=== PATIENT | female | born 1960 | race Caucasian/White ===

== ENCOUNTER 2018-07-12 16:35 | Outpatient (REF) | payer BC, SELFPAY ==
[2018-07-12 20:45] LABS: ALT 21 U/L (12-78); Anion Gap 9.8 mmol/L (3-11); BUN 22 mg/dL (7-18); CO2 26.2 mmol/L (21.0-32.0); CREATININE 0.87 mg/dL (0.55-1.02); Calcium 8.9 mg/dL (8.5-10.1); Chloride 102 mmol/L (98-107); Cholesterol 321 mg/dL (50-200); Glucose 87 mg/dL (70-100); HDL Cholesterol 77 mg/dL (40-60); LDL CHOLESTEROL 217 mg/dL (<100); Potassium 4.2 mmol/L (3.5-5.1); Sodium 138 mmol/L (136-145); Triglyceride 144 mg/dL (30-150)
[2018-07-12 20:56] LABS: Creatine Kinase 527 U/L (26-192)
== END 2018-07-12 16:55 ==
LOC: NCHCN 16:35
PROVIDERS: PCP Physician Assistant; Visit Provider Internal Medicine
DX: Z00.00 Encounter for general adult medical examination without abnormal findings (principal); E78.5 Hyperlipidemia, unspecified; F43.21 Adjustment disorder with depressed mood; I10 Essential (primary) hypertension
CPT/HCPCS: 80048; 80061; 82550; 83721; 84460

== ENCOUNTER 2019-11-14 20:18 | Outpatient (REF) | payer BC, SELFPAY ==
[2019-11-14 18:58] LABS: Anion Gap 9.2 mmol/L (3-11); BUN 23 mg/dL (7-18); CO2 26.8 mmol/L (21.0-32.0); CREATININE 0.83 mg/dL (0.55-1.02); Calcium 8.5 mg/dL (8.5-10.1); Chloride 101 mmol/L (98-107); Glucose 81 mg/dL (74-106); Potassium 3.9 mmol/L (3.5-5.1); Sodium 137 mmol/L (136-145)
== END 2019-11-14 20:38 ==
LOC: NCHCN 20:18
PROVIDERS: PCP Physician Assistant; Visit Provider Internal Medicine
DX: I10 Essential (primary) hypertension (principal); E66.9 Obesity, unspecified
CPT/HCPCS: 80048

== ENCOUNTER 2020-07-27 17:40 | Outpatient (REF) | payer BC, SELFPAY ==
[2020-07-27 18:56] LABS: Anion Gap 11.1 mmol/L (3-11); BUN 20 mg/dL (7-18); CO2 25.9 mmol/L (21.0-32.0); CREATININE 0.8 mg/dL (0.55-1.02); Calcium 8.6 mg/dL (8.5-10.1); Chloride 102 mmol/L (98-107); Glucose 84 mg/dL (74-106); LDL CHOLESTEROL 161 mg/dL (<100); Potassium 3.6 mmol/L (3.5-5.1); Sodium 139 mmol/L (136-145); TSH 2.76 uIU/mL (0.36-3.74)
== END 2020-07-27 17:41 | disposition home or self-care (01) ==
LOC: NCHCN 17:40
PROVIDERS: PCP Physician Assistant; Visit Provider Internal Medicine
DX: Z00.00 Encounter for general adult medical examination without abnormal findings (principal); Z13.29 Encounter for screening for other suspected endocrine disorder; Z13.228 Encounter for screening for other metabolic disorders; Z13.220 Encounter for screening for lipoid disorders
CPT/HCPCS: 80048; 83721; 84443

== ENCOUNTER 2020-09-07 16:38 | Outpatient (REF) | payer BC, SELFPAY ==
--- NOTE | 2020-09-07 16:05 | PAPFT_PTH ---
PATIENT: Staci Manrique LOC: [facility]#:[id number] AGE/SX: 59/F ROOM: RE09/07/[address]: Mei Best : 1960 BED: DIS: 09/07/2020 SPEC #: [id number] RECD: 09/07/20 17:51 STATUS: NORMAN REDouglas #: [id number] LEROY: 09/07/20 16:[address]: Mei Best DEPT: [facility] Cytology RECD BY: Sydnee Muniz ENTERED: 09/07/20 17:51 SP TYPE: PAPFT OTHR DR: Tiago Wisdom Tissues: 1 - CX/ENDOCX FOR PAP SMEARS Procedures: PAP THIN PREP/[facility] Screening HPV DNA PROBE Comments: [id number]
== END 2020-09-07 16:39 | disposition home or self-care (01) ==
LOC: NCHCN 16:38
PROVIDERS: PCP Physician Assistant; Visit Provider Physician Assistant
DX: Z12.4 Encounter for screening for malignant neoplasm of cervix (principal); Z11.51 Encounter for screening for human papillomavirus (HPV); Z01.419 Encounter for gynecological examination (general) (routine) without abnormal findings
CPT/HCPCS: 88142; 87624

== ENCOUNTER 2023-09-14 12:50 | Outpatient (REF) | payer BC, SELFPAY ==
[2023-09-14 20:07] LABS: ALT 25 U/L (14-59); AST 17 U/L (15-37); Albumin 3.9 g/dL (3.4-5.0); Alkaline Phosphatase 60 U/L (46-116); Anion Gap 13.7 mmol/L (3-11); BUN 15 mg/dL (7-18); Bilirubin, Total 0.5 mg/dL (0.2-1.0); CO2 23.3 mmol/L (21.0-32.0); Calcium 8.6 mg/dL (8.5-10.1); Calculated LDL 251 mg/dL (<100); Chloride 99 mmol/L (98-107); Cholesterol 350 mg/dL (<200); Estimated GFR 62.91 (mL/min/1.73m2); Glucose 107 mg/dL (74-106); HDL Cholesterol 82 mg/dL (40-60); Potassium 3.9 mmol/L (3.5-5.1); Sodium 136 mmol/L (136-145); Total Protein 7.6 g/dL (6.4-8.2); Triglyceride 86 mg/dL (<150)
== END 2023-09-14 12:51 | disposition home or self-care (01) ==
LOC: NCHCN 12:50
PROVIDERS: PCP Physician Assistant; Visit Provider Nurse Practitioner Family
DX: I10 Essential (primary) hypertension (principal)
CPT/HCPCS: 80053; 80061

== ENCOUNTER 2025-03-16 08:19 | Outpatient (REF) | payer BC, SELFPAY ==
[2025-03-16 19:42] LABS: ALT 28 U/L (14-59); AST 18 U/L (15-37); Albumin 3.9 g/dL (3.4-5.0); Alkaline Phosphatase 63 U/L (46-116); Anion Gap 12.5 mmol/L (3-11); BUN 13 mg/dL (7-18); Bilirubin, Total 0.9 mg/dL (0.2-1.0); CO2 25.5 mmol/L (21.0-32.0); Calcium 8.3 mg/dL (8.5-10.1); Calculated LDL 214 mg/dL (<100); Chloride 94 mmol/L (98-107); Cholesterol 314 mg/dL (<200); Estimated GFR 70.51 (mL/min/1.73m2); Glucose 115 mg/dL (74-106); HDL Cholesterol 74 mg/dL (>or=50); Potassium 3.4 mmol/L (3.5-5.1); Sodium 132 mmol/L (136-145); Total Protein 7.4 g/dL (6.4-8.2); Triglyceride 130 mg/dL (<150)
== END 2025-03-16 08:20 | disposition home or self-care (01) ==
LOC: NCHCN 08:19
PROVIDERS: PCP Physician Assistant; Visit Provider Nurse Practitioner Family
DX: E78.5 Hyperlipidemia, unspecified (principal)
CPT/HCPCS: 80053; 80061

== ENCOUNTER 2025-03-20 20:35 | Outpatient (REF) | payer BC, SELFPAY ==
[2025-03-20 21:46] LABS: Hemoglobin A1C 5.3 % (<5.7)
[2025-03-20 21:47] LABS: Anion Gap 11.5 mmol/L (3-11); BUN 19 mg/dL (7-18); CO2 26.5 mmol/L (21.0-32.0); Calcium 9.0 mg/dL (8.5-10.1); Calculated LDL 191 mg/dL (<100); Chloride 97 mmol/L (98-107); Cholesterol 295 mg/dL (<200); Estimated GFR 55.42 (mL/min/1.73m2); Glucose 89 mg/dL (74-106); HDL Cholesterol 78 mg/dL (>or=50); Potassium 3.7 mmol/L (3.5-5.1); Sodium 135 mmol/L (136-145); Triglyceride 132 mg/dL (<150)
== END 2025-03-20 20:36 | disposition home or self-care (01) ==
LOC: NCHCN 20:35
PROVIDERS: PCP Physician Assistant; Visit Provider Nurse Practitioner Family
DX: R73.9 Hyperglycemia, unspecified (principal); E87.6 Hypokalemia; E78.5 Hyperlipidemia, unspecified
CPT/HCPCS: 80048; 80061; 83036